=== PATIENT | male | born 1965 | race Caucasian/White ===

== ENCOUNTER → 2016-11-09 | Outpatient (CLI) | payer BC | LOC: GMAJ 14:38 | PROVIDERS: ATTEND Family Medicine | DX: M10.9 Gout, unspecified (principal) ==

== ENCOUNTER → 2017-07-22 | Outpatient (CLI) | payer BC | END | disposition home or self-care (01) | LOC: GMAJ 16:32 | PROVIDERS: ATTEND Family Medicine | DX: Z00.00 Encounter for general adult medical examination without abnormal findings (principal) ==

== ENCOUNTER → 2018-08-18 | Outpatient (CLI) | payer BC | LOC: GMAJ 10:52 | PROVIDERS: ATTEND Family Medicine | DX: M1A.9XX0 Chronic gout, unspecified, without tophus (tophi) (principal); Z12.5 Encounter for screening for malignant neoplasm of prostate ==

== ENCOUNTER 2018-08-24 05:41 | Day surgery (SDC) | payer BC ==
[2018-08-24] MEDS ORDERED: PROPOFOL 200 MG/20 ML VIAL IV ONE (07:00)
[2018-08-24] MEDS ORDERED: LIDOCAINE 1% 10 ML VIAL INJ ONE (07:00)
[2018-08-24] MEDS ORDERED: LACTATED RINGERS 1,000 ML ONE (10:50)
[2018-08-24 12:51] VITALS: O2SAT 96
[2018-08-24 15:19] VITALS: BP 128/76; TEMP 97.9
--- NOTE | 2018-08-25 08:32 | OP ---
DATE OF PROCEDURE: 08/24/18 PREPROCEDURE DIAGNOSIS: 1. Colorectal cancer screening. POSTPROCEDURE DIAGNOSIS: 1. Ascending colon ulcer. 2. Internal hemorrhoids. 3. Diverticulosis in the sigmoid colon. PROCEDURE: 1. Colonoscopy. SURGEON: Andrew Barber MD COMPLICATIONS: No immediate complications. SEDATION: The patient was sedated via IV propofol by the Anesthesia Department. CONSENT: Prior to the procedure, risks, benefits and alternatives to the therapy were discussed with the patient. The risks included bleeding, infection , perforation and . The patient agreed to the procedure and signed a consent. PREPROCEDURE ANESTHESIA ASSESSMENT: An examination revealed no contraindication to sedation. Airway examination demonstrated a Mallampati class type 2, ASA grade assessment type 2. Throughout the procedure, the patient's blood pressure, pulse and oxygen saturation were closely monitored. PROCEDURE: The patient was placed in the left lateral decubitus position and a rectal examination was performed. The rectal examination was within normal limits. The Olympus colonoscope was passed in the anus, rectum, traversing the colon to the level of the cecum as identified by the appendiceal orifice. Preparation quality was good. The withdrawal time was greater than 6 minutes. The patient tolerated the procedure well. FINDINGS: 1. A 50-mm shallow ulcer was seen in the ascending colon. This was biopsied with cold forceps. 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 2. Medium-sized, non-bleeding internal hemorrhoids were seen in retroflexion in the rectum. 3. Moderate to severe diverticulosis was seen predominantly in the sigmoid and descending colon. Associated erythema was seen in this area. 4. Normal terminal ileum. RECOMMENDATION: 1. Return the patient home. 2. Resume previous diet. 3. Followup pathology results. 4. Repeat colonoscopy in 10 years' time for screening purposes. 5. Primary care physician may decide to check fecal occult test or Cologuard on yearly basis starting 3 years from now. 6. Findings were discussed with the patient and the patient's family member. #[id number] [facility]
== END 2018-08-24 14:40 | disposition home or self-care (01) ==
LOC: AMB 05:41
PROVIDERS: ATTEND Internal Medicine Gastroenterology
DX: Z12.11 Encounter for screening for malignant neoplasm of colon (principal); K63.3 Ulcer of intestine; K57.30 Diverticulosis of large intestine without perforation or abscess without bleeding; K64.8 Other hemorrhoids; I10 Essential (primary) hypertension; M10.9 Gout, unspecified; F17.220 Nicotine dependence, chewing tobacco, uncomplicated; Z79.899 Other long term (current) drug therapy
CPT/HCPCS: 00812; 45380; J3490; J7120

== ENCOUNTER → 2019-09-12 | Outpatient (CLI) | payer BC | END | disposition home or self-care (01) | LOC: GMAJ 10:08 | PROVIDERS: ATTEND Family Medicine | DX: M10.9 Gout, unspecified (principal) ==